=== PATIENT | male | born 1955 | race Caucasian/White ===

== ENCOUNTER → 2017-01-18 | Outpatient (CLI) | payer OTHER ==
[~2017-01-18] MED LIST: IOPAMIDOL (ISOVUE-300) 100 ML BTL ONE
== END ==
LOC: FIMAGING 15:52
PROVIDERS: ATTEND Internal Medicine Nephrology
DX: N28.1 Cyst of kidney, acquired (principal)
CPT/HCPCS: Q9967

== ENCOUNTER → 2018-10-14 | Outpatient (CLI) | payer OTHER | LOC: GIMAGING 09:33 | PROVIDERS: ATTEND Physician Assistant | DX: M89.8X5 Other specified disorders of bone, thigh (principal) | CPT/HCPCS: 73521-PO ==